=== PATIENT | male | born 1950 | race Caucasian/White ===

== ENCOUNTER 2020-01-27 10:07 | Emergency (ER) | payer OTHER ==
[~2020-01-27] VITALS: Ht 177.8 cm; Wt 76.7 kg
[2020-01-27 10:24] VITALS: Ht 177.8 cm; Wt 76.7 kg
[2020-01-27 12:13] VITALS: BP 123/66
== END 2020-01-27 12:13 | disposition home or self-care (01) ==
LOC: ED 10:07
DX: T63.481A Toxic effect of venom of other arthropod, accidental (unintentional), initial encounter (principal); Y93.89 Activity, other specified; Y92.89 Other specified places as the place of occurrence of the external cause; Y99.8 Other external cause status
CPT/HCPCS: J1200; J2930; J3490